=== PATIENT | male | born 1965 | race Hispanic/Latino ===

== ENCOUNTER 2019-11-01 13:53 | Outpatient (CLI) | payer OTHER ==
--- NOTE | 2019-11-01 14:12 | RAD ---
Right foot 3 views HISTORY: Right foot pain. FINDINGS: Lisfranc joint alignment is anatomic. Plantar arch is maintained. Mild osteophytosis throughout the foot. Mild subchondral sclerosis at the first metatarsophalangeal j oint. No acute fracture, dislocation, or aggressive osseous erosions. IMPRESSION : Very mild osteoarthritic changes. No acute osseous abnormalities are demonstrated.
== END 2019-11-01 13:54 | disposition home or self-care (01) ==
LOC: BICRAD 13:53
PROVIDERS: ATTEND Family Medicine
DX: M79.671 Pain in right foot (principal); M25.774 Osteophyte, right foot; M19.071 Primary osteoarthritis, right ankle and foot

== ENCOUNTER 2025-06-19 14:16 | Outpatient (CLI) | payer OTHER | END 2025-06-19 14:17 | disposition home or self-care (01) | LOC: BICRAD 14:16 | PROVIDERS: ATTEND Family Medicine | DX: R05.9 Cough, unspecified (principal) | CPT/HCPCS: 71046 ==